=== PATIENT | female | born 1985 | race Hispanic/Latino ===

== ENCOUNTER 2020-06-02 09:59 | Emergency (ER) | payer SELFPAY ==
[2020-06-02 10:26] VITALS: BP 121/83
--- NOTE | 2020-06-02 10:51 | Emergency Department Report ---
ED General Adult HPI - General Chief complaint: Dyspnea/Respdistress Stated complaint: UTI/COVID SX Time Seen by Provider: 06/02/20 10:42 Source: patient Mode of arrival: Ambulatory Limitations: No Limitations - History of Present Illness Initial comments: This is a pleasant 35-year-old female presents the emergency department the chief complaint of lower abdominal pain, dysuria, urinary frequency and urgency over the past 3 weeks. She reports she had some nausea and some right-sided back pain. She also reports she may have been exposed to COVID-19 and is concerned. She denies any chest pain, shortness of breath, vomiting, diarrhea, fever, chills, night sweats, headache, dizziness, blurry vision, weakness or any other associated symptoms. She denies any other known past medical history other than anxiety, denies any current medication use or known allergies to medications. - Related Data Previous Rx's Medication Instructions Recorded Last Taken Type Doxycycline Hyclate [Doxycycline 100 mg PO Q12HR #20 tab 06/02/20 Unknown Rx Hyclate TAB] Allergies Allergy/AdvReac Type Severity Reaction Status Date / Time cefaclor [From Ceclor] Allergy Unknown Verified 06/02/20 11:48 ED Review of Systems ROS: Stated complaint: UTI/COVID SX Other details as noted in HPI Comment: All other systems reviewed and negative Constitutional: denies: chills, fever Eyes: denies: eye pain, eye discharge, vision change ENT: denies: ear pain, throat pain Respiratory: denies: cough, shortness of breath, wheezing Cardiovascular: denies: chest pain, palpitations Endocrine: no symptoms reported Gastrointestinal: as per HPI, abdominal pain. denies: nausea, diarrhea Genitourinary: as per HPI, urgency, dysuria, frequency. denies: discharge Musculoskeletal: denies: back pain, joint swelling, arthralgia Skin: denies: rash, lesions Neurological: denies: headache, weakness, paresthesias Psychiatric: denies: anxiety, depression Hematological/Lymphatic: denies: easy bleeding, easy bruising ED Past Medical Hx - Past Medical History Previous Medical History?: No - Medications Home Medications: Home Medications Medication Instructions Recorded Confirmed Last Taken Type Doxycycline Hyclate [Doxycycline 100 mg PO Q12HR #20 tab 06/02/20 Unknown Rx Hyclate TAB] ED Physical Exam - General Limitations: No Limitations General appearance: alert, in no apparent distress - Head Head exam: Present: atraumatic, normocephalic - Eye Eye exam: Present: normal appearance, PERRL, EOMI Pupils: Present: normal accommodation - ENT ENT exam: Present: normal exam, normal orophraynx, mucous membranes moist - Neck Neck exam: Present: normal inspection, full ROM. Absent: tenderness, mening ismus - Respiratory Respiratory exam: Present: normal lung sounds bilaterally. Absent: respiratory distress, wheezes, rales, rhonchi, stridor, chest wall tenderness - Cardiovascular Cardiovascular Exam: Present: regular rate, normal rhythm, normal heart sounds. Absent: systolic murmur, diastolic murmur, rubs, gallop - GI/Abdominal GI/Abdominal exam: Present: soft, normal bowel sounds. Absent: distended, tenderness, guarding, rebound, rigid - Extremities Exam Extremities exam: Present: normal inspection, full ROM, normal capillary refill. Absent: tenderness, calf tenderness (Negative Homans' sign bilaterally) - Back Exam Back exam: Present: normal inspection, full ROM. Absent: tenderness, CVA tenderness (R), CVA tenderness (L) - Neurological Exam Neurological exam: Present: alert, oriented X3, normal gait - Psychiatric Psychiatric exam: Present: normal affect, normal mood - Skin Skin exam: Present: warm, dry, intact, normal color. Absent: rash ED Course Vital Signs 06/02/20 10:24 Temperature 98.8 F Pulse Rate 77 Respiratory 18 Rate Blood Pressure 121/83 [Right] O2 Sat by Pulse 99 Oximetry ED Medical Decision Making - Lab Data Lab Results 06/02/20 Range/Units 11:33 Urine Color Yellow (Yellow) Urine Turbidity Slightly-cloudy (Clear) Urine pH 6.0 (5.0-7.0) Ur Specific Scott 1.011 (1.003-1.030) Urine Protein <15 mg/dl (Negative) mg/dL Urine Glucose (UA) Neg (Negative) mg/dL Urine Ketones Neg (Negative) mg/dL Urine Blood Mod (Negative) Urine Nitrite Neg (Negative) Urine Bilirubin Neg (Negative) Urine Urobilinogen < 2.0 (<2.0) mg/dL Ur Leukocyte Esterase Sm (Negative) Urine WBC (Auto) 4.0 (0.0-6.0) /HPF Urine RBC (Auto) 8.0 (0.0-6.0) /HPF U Epithel Cells (Auto) 21.0 H (0-13.0) /HPF Urine Bacteria (Auto) 4+ (Negative) /HPF Urine Mucus Few /HPF Urine HCG, Qual Negative (Negative) - Radiology Data Radiology results: report reviewed, image reviewed XRay Report Signed Patient: DARA YOUNGER MR#: [id number] 126 : 1985 Acct:[id number] Age/Sex: 35 / F ADM Date: 06/02/20 Loc: ED Attending Dr: Ordering Physician: BLAS SALINAS Date of Service: 06/02/20 Procedure(s): XR chest routine 2V Accession Number(s): [id number] cc: BLAS SALINAS Fluoro Time In Minutes: CHEST 2 VIEWS INDICATION / CLINICAL INFORMATION: cough, congestion. COMPARISON: None available. FINDINGS: SUPPORT DEVICES: None. HEART / MEDIASTINUM: No significant abnormality. LUNGS / PLEURA: No significant pulmonary or pleural abnormality. No pneumothorax. No confluent infiltrates or pleural effusions. ADDITIONAL FINDINGS: No significant additional findings. IMPRESSION: 1. No acute findings. Signer Name: Boubacar Vaughan MD Signed: 06/02/2020 12:36 PM Workstation Name: [id number] Transcribed By: Dictated By: BOUBACAR VAUGHAN Electronically Authenticated By: BOUBACAR VAUGHAN Signed Date/Time: 06/02/20 1236 - Medical Decision Making Patient presented emergency department with complaints of possible Covid exposure and nasal congestion and dysuria. Her vitals were unremarkable and she is PERC negative. She is a heavy smoker and chest x-ray was ordered and unr emarkable. Expect this is likely bronchitis and due to her heavy smoking history I will cover her with an antibiotic. She also is complaining of dysuria so urinalysis was ordered. test was negative and urine was relatively unremarkable and not consistent with urinary tract infection. I did ask the patient was out all concerned about a possible exposure to an STD, PID however she states she was not and did not want this work-up. She understood that I was limited my diagnostic capabilities without this pelvic exam. We will treat the patient with doxycycline to cover for both the urine and the respiratory complaint and recommended outpatient primary care follow-up and return to emerge department if develops any change or worsening symptoms. She was educated that a urine culture was ordered and that her primary care doctor should follow-up on the urine culture and call medical records for that result. - Differential Diagnosis UTI, cervicitis, bronchitis Critical care attestation.: If time is entered above; I have spent that time in minutes in the direct care of this critically ill patient, excluding procedure time. ED Disposition Clinical Impression: Dysuria AB (asthmatic bronchitis) Qualifiers: Asthma severity: mild Asthma persistence: intermittent Asthma complication type: with acute exacerbation Qualified Code(s): J45.21 - Mild intermittent asthma with (acute) exacerbation Disposition: TO HOME OR SELFCARE Is pt being admited?: No Condition: Stable Instructions: Dysuria, Chronic Bronchitis (ED) Prescriptions: Doxycycline Hyclate [Doxycycline Hyclate TAB] 100 mg PO Q12HR #20 tab Referrals: PRIMARY MD KATIE [Primary Care Provider] - 3-5 Days JENNY HAYS MD [Staff Physician] - 3-5 Days [facility] [Provider Group] - 3-5 Days Time of Disposition: 12:49
[2020-06-02 12:01] LABS: Bacteria,Urine 4+ /HPF (Negative); Bilirubin,Urine NEG (Negative); Blood,Urine MOD (Negative); Color,Urine Yellow (Yellow); Mucus,Urine FEW /HPF; Protein,Urine <15 mg/dL mg/dL (Negative); Urobilinogen,Urine < 2.0 mg/dL (<2.0)
[2020-06-02 12:04] LABS: HCG Qualitative,Urine Negative (Negative)
--- NOTE | 2020-06-02 12:41 | XRay Report ---
CHEST 2 VIEWS INDICATION / CLINICAL INFORMATION: cough, congestion. COMPARISON: None available. FINDINGS: SUPPORT DEVICES: None. HEART / MEDIASTINUM: No significant abnormality. LUNGS / PLEURA: No significant pulmonary or pleural abnormality. No pneumothorax. No confluent infilt rates or pleural effusions. ADDITIONAL FINDINGS: No significant additional findings. IMPRESSION: 1. No acute findings. Signer Name: Boubacar Altman MD Signed: 06/02/2020 12:36 PM Workstation Name: [id number]
== END 2020-06-02 13:16 | disposition home or self-care (01) ==
LOC: ED 09:59
DX: J44.9 Chronic obstructive pulmonary disease, unspecified (principal)
CPT/HCPCS: 71046; 81001; 81025; 99283